=== PATIENT | male | born 1945 | race Caucasian/White ===

== ENCOUNTER 2023-09-20 06:20 | Inpatient (IN) | payer MEDICARE, OTHER, SELFPAY ==
--- NOTE | 2023-08-21 13:19 | CM ---
Addendum entered by Dede Wilson 09/18/23 10:59:
Spoke again with patient's . She has obtained a firm cushion and full hip kit. Patient will need a commode issued prior to discharge. Patient's sister will be staying with them for a week after surgery.
Original Note:
Patient is scheduled for an elective L THR on 09/20/23. Spoke with patient's prior to surgery via telephone. Introduced role of Orthopedic Navigator. She reports that she and patient live in a two story home. There are three steps to enter and a
flight of steps to the second floor. There is a powder room on the carpentry instructor. He currently functions independently and uses a rolling walker. He is very limited in his mobility due to pain and only ambulates to/from the bathroom. He uses a wheel
chair for longer distances. He is currently staying on the first floor of his home. In addition to the walker and wheel chair, he has a long handled shoe horn,single point cane and quad cane. He has had VN services in the past. He has a PARIMUTUEL TICKET SELLER through
[employer] [facility] who assists with transportation and household tasks (through [employer] [facility] [place])PCP is Lincoln Ugalde.
Discussed orthopedic program and post surgical plans. Reviewed anticipated length of stay and that goal is for patient to return home at discharge. states that she can not provide much assistance to patient due to her own limitations. Discussed
having the [employer] SE[employer]ER assist with self care and mobility however states that their aide has said she can't. was encouraged to contact agency to discuss having someone who can assist with these things. Patient will likely benefit from VN services.
Patient will complete online education.
Plan: Orthopedic Navigator will remain available to assist with the care of patient and will reassess discharge needs after surgery.
[2023-08-31 13:08] VITALS: BMI 32.2
[2023-08-31 13:49] LABS: Hematocrit 36.6 % (39.0-52.0); Hemoglobin 12.7 g/dL (13.0-18.0); Mean Corp Hgb Conc. 34.7 g/dL (33.0-37.0); Mean Corpuscular Hgb 30.8 pg (27.0-31.0); Mean Corpuscular Volume 88.6 fL (80.0-94.0); Mean Platelet Volume 10.1 fL (7.4-10.4); Platelet Count 284 10^3/uL (130-400); Red Blood Cell Count 4.13 10^6/uL (4.70-6.10); Red Cell Dist. Width 14.3 % (11.5-14.5); White Blood Cell Count 7.8 10^3/uL (4.8-10.8)
[2023-08-31 14:02] LABS: ALT (SGPT) 18 U/L (0-50); AST (SGOT) 24 U/L (17-59); Albumin 3.6 g/dl (3.5-5.0); Alkaline Phosphatase 79 U/L (38-126); Blood Urea Nitrogen 25 mg/dl (9-20); Calcium 9.7 mg/dl (8.4-10.2); Carbon Dioxide 27 mmol/L (22-30); Chloride 99 mmol/L (98-107); Estimated Creatinine Clearance 77 ml/min; Glucose 103 mg/dl (70-99); Potassium 4.5 mmol/L (3.5-5.1); Sodium 136 mmol/L (135-145); Total Bilirubin 0.8 mg/dl (0.2-1.3); Total Protein 6.1 g/dl (6.3-8.2); eGFR > 60.00
[2023-08-31 14:30] LABS: Iron 77 ug/dl (49-181)
[2023-08-31 14:40] LABS: Percent Saturation 29 % (20-50); Total Iron Binding Capacity 262 ug/dl (261-462)
[2023-08-31 15:19] VITALS: BMI 32.2
[2023-08-31 15:43] LABS: Vitamin B12 773 pg/ml (239-931)
[2023-09-01 11:06] LABS: Glycohemoglobin (HgbA1c) 6.5 % (4.0-5.6)
[2023-09-20] VITALS (20 sets, daily range): BP systolic 105–152; BP diastolic 56–106; PULSE 58–59; O2SAT 98; BMI 32.2
[2023-09-20] MEDS: TYLENOL 650 MG PO ×4 (08:31→20:29)
[2023-09-20] MEDS: CELEBREX 200 MG PO (08:31)
[2023-09-20] MEDS: NORMOSOL-R 1000 IV ×2 (08:32→12:16)
[2023-09-20] MEDS: VANCOCIN 300 MG IV (08:42)
[2023-09-20] MEDS: VANCOCIN 300 ML IV (08:42)
[2023-09-20] MEDS: ROXICODONE 5 MG PO ×3 (12:23→22:56)
[2023-09-20] MEDS: MORPHINE SULFATE 2 MG IV (15:24)
--- NOTE | 2023-09-20 15:46 | PTCARENOTE ---
Patient received from PACU in bed; IVF infusing; Surgical site assessed; Patient oriented to room and unit; Call flores within reach; Bed in lowest position, wheels locked; Assessment ongoing
[2023-09-20 15:49] LABS: Glucose - Point of Care 199 mg/dl (70-99)
[2023-09-20] MEDS: NOVOLOG FLEXPEN-MODERATE RESISTANCE SC (16:20)
[2023-09-20] MEDS: NOVOLOG FLEXPEN-MODERATE RESISTANCE 3 UNITS SC (17:10)
[2023-09-20 17:11] LABS: Glucose - Point of Care 215 mg/dl (70-99)
[2023-09-20] MEDS: LOVENOX 30 MG SC (17:11)
[2023-09-20] MEDS: LIPITOR 80 MG PO (17:11)
[2023-09-20] MEDS: ANCEF 5 IV (17:12)
[2023-09-20] MEDS: SENOKOT 17.1999999999999993 MG PO (20:28)
[2023-09-20] MEDS: COLACE 100 MG PO (20:28)
[2023-09-20] MEDS: BACTROBAN 2% OINTMENT 1 APPLIC NASAL (20:29)
[2023-09-20] MEDS: FLORASTOR 250 MG PO (20:29)
[2023-09-20] MEDS: VANCOCIN 200 IV (21:54)
[2023-09-20] MEDS: NEURONTIN 300 MG PO (21:54)
[2023-09-20] MEDS: TYLENOL PO (23:59)
[2023-09-21] MEDS: ANCEF 5 IV (01:55)
[2023-09-21 02:11] VITALS: PULSE 60
[2023-09-21 03:20] VITALS: BP 146/67
[2023-09-21] MEDS: TYLENOL PO (04:00)
[2023-09-21 07:03] VITALS: BP 129/69
[2023-09-21] MEDS: SENOKOT 17.1999999999999993 MG PO (08:37)
[2023-09-21] MEDS: FLORASTOR 250 MG PO (08:37)
[2023-09-21] MEDS: COLACE 100 MG PO (08:38)
[2023-09-21] MEDS: TYLENOL 650 MG PO ×2 (08:38→11:40)
[2023-09-21] MEDS: BACTROBAN 2% OINTMENT 1 APPLIC NASAL (08:38)
[2023-09-21] MEDS: ROXICODONE 10 MG PO (08:40)
[2023-09-21 08:42] LABS: Glucose - Point of Care 195 mg/dl (70-99)
[2023-09-21] MEDS: NOVOLOG FLEXPEN-MODERATE RESISTANCE SC (08:42)
--- NOTE | 2023-09-21 09:11 | CM ---
Addendum entered by Dede Wilson 09/21/23 14:03:
Met with patient, and sister again after therapy. Patient did well and they have no concerns about discharge plans.
Addendum entered by Dede Wilson 09/21/23 13:32:
Met with patient, and patient's sister. They are please with patient's progress thus far. now states that they have a commode and don't need one to take home.
Original Note:
Reviewed chart and held rounds with PT, OT and nursing. Patient admitted as planned for elective L THR. Met with patient at bedside. Confirmed information previously obtained for assessment. Also discussed discharge plans. The plan, at this time, is
for patient to return home at discharge. He will have support from (she is only able to provide a minimal amount of assistance) and sister when he goes home. Reviewed VN services including start of care (tentatively 09/21), services to be ordered
(PT, OT, SN) and frequency/duration of services. Options list provided and PAC data reviewed. Patient selects [facility].
Patient has a single point and quad cane, rolling walker, wheel chair,hip kit and firm cushion at home. He will need a commode issued at discharge.
VN referral was completed and sent to [facility] through [employer] with request for start of care on 09/21. Confirmation received of their ability to accept case. head control clerk to fax discharge instructions to [facility] when complete.
Patient will use [facility] pharmacy for discharge prescriptions
Patient's and sister will be present for therapy today.
--- NOTE | 2023-09-21 10:39 | W.PN.ORTHO ---
Today's Communication / Plan
-
d/c
Assessment
.
Distal Motor Intact: Yes
Dressing:
Clean, dry and intact.
Assessment:
CAD-MARIA ISABEL--LAD,OM1-2005
CVA 2021
-resume Plavix in am-POD#2
MRSA+ nasal screen-s/p IV Vanco [id number] intranasal Mupirocin bid x 14 days
Plan
.
Surgery / Date: AVN-s/p L NATALIE Dr. Camarillo 09/20/23
DVT Prophylaxis: Lovenox (30mg Sq hs)
Activity:
Out of bed.
PT/OT
Discharge Plan: Home w/ VN
Subjective
.
.:
Patient resting comfortably.
Vital Signs and Labs
.
Vital Signs and Labs:
Lab Results
08/31/23 12:57
08/31/23 12:58
Temp Pulse Resp BP Pulse Ox
97.4 F 74 19 129/69 99
09/21/23 07:03 09/21/23 07:03 09/21/23 07:03 09/21/23 07:03 09/21/23 08:36
Non-invasive Hgb result: 11.7
Physical Exam
-
HEENT: No pallor, cyanosis, or jaundice. Throat clear.
NECK: Supple. No JVD.
RESPIRATORY: Lungs clear to auscultation.
CVS: S1, S2 normal. RRR.� No murmur, rub or gallop.
ABDOMEN: Soft, non-tender. No distension. BS+/normal.
EXTREMITIES: strength equal, no calf pain with palpation
SHAKER OUT: AOx3. No focal deficits. senior drafter grossly intact
--- NOTE | 2023-09-21 10:51 | W.DS.TRANS ---
DC Summary - [place]
-
Discharge Instructions:
Discharge Diagnosis/Procedures AVN-s/p L NATALIE Dr. Camarillo 09/20/23
Diet Diabetic, Carb Controlled
Activity With Walker
Driving Restrictions No driving
Bathing Restrictions OK to Shower
Other Services VN,PT,OT
Stop these medications: CONTINUE MUPIROCIN TWICE DAILY FOR A TOTAL OF 14
DAYS FROM START DATE
Instructions:
Stand-Alone Forms: Total Hip/Knee Replacement D/C
Changes to Home Medications: Yes
Discharge Medications:
DC Medications w/original date entered in [employer]
albuterol sulfate 2.5 mg/3 mL (0.083 %) solution for nebulization 2.5 mg inhalation PRN PRN Cough 09/28/21
budesonide 0.5 mg/2 mL suspension for nebulization 0.5 mg inhalation PRN PRN Cough 09/28/21
ezetimibe 10 mg tablet 10 mg PO DAILY High Cholesterol 09/28/21
fluticasone furoate 100 mcg-vilanterol 25 mcg/dose inhalation powder (Breo Ellipta) 1 puff inhalation R DAILY Lung/Breathing Issues 09/28/21
irbesartan 150 mg tablet 150 mg PO DAILY Blood Pressure 09/28/21
montelukast 10 mg tablet 10 mg PO QPM Lung/Breathing Issues 09/28/21
multivitamin with folic acid 400 mcg tablet (Tab-A-Elder) 1 tab PO DAILY Supplement 09/28/21
pantoprazole 40 mg tablet,delayed release 40 mg PO DAILY Gastrointestinal Issue 09/28/21
clopidogrel 75 mg tablet 75 mg PO DAILY ##0 10/01/21
atorvastatin 80 mg tablet 80 mg PO DAILY High Cholesterol 08/29/23
fexofenadine 180 mg tablet 180 mg PO DAILY Allergies 08/29/23
methylcellulose (laxative) 500 mg tablet (Citrucel) 1,000 mg PO QPM Constipation 08/29/23
mupirocin 2 % topical ointment 1 applic topical BID infection prevention #1 tube 08/31/23
Saccharomyces boulardii 250 mg capsule (Florastor) 250 mg PO BID #1 cap 09/21/23
acetaminophen 500 mg tablet 1,000 mg PO QID pain #0 tabs 09/21/23
cefadroxil 500 mg capsule 500 mg PO BID infection prevention #14 caps 09/21/23�
docusate sodium 100 mg capsule (Colace) 100 mg PO BID stool softner #1 cap 09/21/23
enoxaparin 30 mg/0.3 mL subcutaneous syringe (Lovenox) 30 mg (0.3 mL) SC HS Blood clot prevention/tx #30 mL 09/21/23
gabapentin 300 mg capsule 300 mg PO HS sleep/pain #10 caps 09/21/23
magnesium hydroxide 400 mg/5 mL oral suspension (Milk of Magnesia) 30 ml PO HS PRN Constipation #1 mL 09/21/23
oxycodone 5 mg tablet 5 - 10 mg PO Q6HPRN PRN 1 tab moderate-2 tabs severe pain #30 tabs 09/21/23
sennosides 8.6 mg tablet (Senokot) 17.2 mg PO BID laxative #2 tabs 09/21/23
tramadol 50 mg tablet 50 mg PO BID pain #0 tabs 09/21/23
Home Medication Changes
cefadroxil 500 mg capsule 500 mg PO BID infection prevention #14 caps 09/21/23�
enoxaparin 30 mg/0.3 mL subcutaneous syringe (Lovenox) 30 mg (0.3 mL) SC HS Blood clot prevention/tx #30 mL 09/21/23�
gabapentin 300 mg capsule 300 mg PO HS sleep/pain #10 caps 09/21/23�
oxycodone 5 mg tablet 5 - 10 mg PO Q6HPRN PRN 1 tab moderate-2 tabs severe pain #30 tabs 09/21/23�
Pending Results: No
[2023-09-21] MEDS: PLAVIX 75 MG PO (11:40)
[2023-09-21 12:16] VITALS: BP 124/66; PULSE 68; O2SAT 98
== END 2023-09-21 14:56 | disposition home health service (06) | DRG 470 ==
LOC: 2 SOUTH 06:20
PROVIDERS: Physician Assistant Medical; ADMITTING PHYSICIAN Orthopaedic Surgery; FAMILY PHYSICIAN Registered Nurse
PROC: 0SRB03A Replacement of Left Hip Joint with Ceramic Synthetic Substitute, Uncemented, Open Approach (ICD-10-PCS; 2023-09-20)
DX: M16.12 Unilateral primary osteoarthritis, left hip (principal); M87.9 Osteonecrosis, unspecified; I25.10 Atherosclerotic heart disease of native coronary artery without angina pectoris; Z79.02 Long term (current) use of antithrombotics/antiplatelets; Z86.73 Personal history of transient ischemic attack (TIA), and cerebral infarction without residual deficits; A49.02 Methicillin resistant Staphylococcus aureus infection, unspecified site
CPT/HCPCS: 36415; 73502; 80053; 82607; 82728; 82962; 83036; 83540; 83550; 85027; 87070; 87147; 94660; 97110; 97116; 97163; 97167; 97530; 97535; C1776

== ENCOUNTER → 2024-05-03 12:46 | Outpatient (REF) | payer MEDICARE, OTHER, SELFPAY | LOC: RAD 12:46 | PROVIDERS: ATTENDING PHYSICIAN Registered Nurse | DX: M54.50 Low back pain, unspecified (principal); W19.XXXA Unspecified fall, initial encounter | CPT/HCPCS: 72110; 72220; 73502 ==

== ENCOUNTER → 2024-07-05 16:50 | Outpatient (REF) | payer MEDICARE, OTHER, SELFPAY | LOC: RAD 16:50 | PROVIDERS: ATTENDING PHYSICIAN Nurse Practitioner Adult Health | DX: R60.0 Localized edema (principal) | CPT/HCPCS: 93970 ==

== ENCOUNTER → 2025-04-29 09:13 | Outpatient (REF) | payer MEDICARE, OTHER, SELFPAY ==
--- NOTE | 2025-04-29 10:01 | CARDSERVLU ---
Echocardiogram with Lumason completed after protocol screening completed. Allergies verified.
Patent IV site: __new start 22P RAC 1st attempt___
IV site flushed with 0.9% NaCl pre and post administration.
Diluted bolus method utilized to enhance visualization of ventricular alexander.
Total volume given: __3.5__ mL under direction echosonographer
site dcd at completion of test.
Patient tolerated all procedures well without complications.
== END ==
LOC: RCS 09:13
PROVIDERS: ATTENDING PHYSICIAN Registered Nurse
DX: R60.0 Localized edema (principal)
CPT/HCPCS: 93306; Q9950